=== PATIENT | male | born 1980 | race American Indian/Alaskan Native ===

== ENCOUNTER 2017-02-02 05:05 | Emergency (ER) | payer MEDICARE ==
[2017-02-02 05:20] VITALS: BP 113/72
== END 2017-02-02 05:30 | disposition left against medical advice (07) ==
LOC: ED 05:05
DX: M79.1 Myalgia (principal); Z53.21 Procedure and treatment not carried out due to patient leaving prior to being seen by health care provider

== ENCOUNTER 2017-02-04 02:15 | Emergency (ER) | payer MEDICARE ==
[2017-02-04 02:19] VITALS: BP 134/94
== END 2017-02-04 04:31 | disposition left against medical advice (07) ==
LOC: ED 02:15
DX: J11.1 Influenza due to unidentified influenza virus with other respiratory manifestations (principal); Z53.21 Procedure and treatment not carried out due to patient leaving prior to being seen by health care provider

== ENCOUNTER 2017-02-12 08:37 | Emergency (ER) | payer MEDICARE ==
[2017-02-12 09:16] LABS: Basophils % (Auto) 0.8 % (0.0-1.8); Eosinophils % (Auto) 3.4 % (0.0-4.3); Hematocrit 47.8 % (35.5-45.6); Hemoglobin 15.4 gm/dl (11.8-15.2); Mean Corpuscular HGB Conc 32 % (32-34); Mean Corpuscular Hemoglobin 27 pg (28-32); Mean Corpuscular Volume 83 fl (84-94); Platelet Count 259 K/mm3 (140-440); Red Blood Count 5.77 M/mm3 (3.65-5.03); Red Cell Distribution Width 14.4 % (13.2-15.2); White Blood Count 6.5 K/mm3 (4.5-11.0)
[2017-02-12 09:32] LABS: Anion Gap 18 mmol/L; BUN/Creatinine Ratio 11.66; Blood Urea Nitrogen 7 mg/dL (9-20); Calcium 8.9 mg/dL (8.4-10.2); Carbon Dioxide 26 mmol/L (22-30); Chloride 101.5 mmol/L (98-107); Glucose 88 mg/dL (75-100); Potassium 4.8 mmol/L (3.6-5.0); Sodium 141 mmol/L (137-145)
[2017-02-12] MEDS ORDERED: NACL 0.9% 1000 ML 1,000 ML IV ONE (10:53)
[2017-02-12] MEDS ORDERED: TORADOL IV ONE (11:07)
--- NOTE | 2017-02-12 11:13 | Emergency Department Report ---
HPI - General Chief Complaint: Syncope Time Seen by Provider: 02/12/17 10:41 - HPI HPI: The patient is a 36-year-old male who presents for evaluation of lightheadedness and syncope. The patient reports that at approximately 6 AM, greater than 4 hours prior to my evaluation, he experienced constant and severe lightheadedness, exacerbated with elevation, while walking outdoors, and subsequent he passed out. He reports a constant mild 2/10 generalized aching in quality headache since his fall, and moderate in severity low back pain, 5/ 10 in severity, tightness in quality, exacerbated with bending of the back, and improved with lying flat and rest. The patient denies fever, neck pain or stiffness, chest pain, dyspnea, abdominal pain, paresthesias, vision or hearing changes, saddle anesthesia, numbness or tingling in the arms or legs, leg weakness, urine or bowel incontinence or retention, difficulty ambulating, or other focal neurological deficits. ED Past Medical Hx - Past Medical History Previous Medical History?: Yes Hx Psychiatric Treatment: Yes (anxiety) - Surgical History Past Surgical History?: No - Social History Smoking Status: Current Every Day Smoker Substance Use Type: Alcohol - Medications Home Medications: Home Medications Medication Instructions Recorded Confirmed Last Taken Type No Known Home Medications [No 02/12/17 02/12/17 Unknown History Reported Home Medications] ED Review of Systems ROS: Stated complaint: FALL/BACK /SIDE PAIN Other details as noted in HPI Constitutional: denies: fever; reports lightheadedness and syncope ENT: denies: throat or neck pain Respiratory: denies: cough, shortness of breath Cardiovascular: denies: chest pain Endocrine: denies unexplained weight loss or gain Gastrointestinal: denies: abdominal pain, nausea Genitourinary: denies: dysuria Musculoskeletal: Reports back pain denies: leg swelling Skin: denies: rash Neurological: reports headache Hematological/Lymphatic: denies: easy bleeding or easy bruising Psych: denies sadness or hopelessness Physical Exam - Physical Exam Vital Signs: Vital Signs 02/12/17 08:44 Temperature 97.8 F Pulse Rate 64 Respiratory 18 Rate Blood Pressure 136/95 O2 Sat by Pulse 99 Oximetry Physical Exam: General: well-nourished, well-developed, no acute distress Head: Normocephalic, atraumatic Eyes: normal sclera, PERRL, EOM intact ENT: Mucous membranes are pale and dry Neck: No neck stiffness, no cervical adenopathy Respiratory: Breath sounds equal bilaterally, no wheezing, rales, or rhonchi Cardio: S1 and S2 present, no murmurs, rubs, gallops, capillary refill is delayed Abdomen: Normoactive bowel sounds, soft abdomen, no rigidity, no guarding or rebound tenderness Chest WALL/Back: Inspection of the back unremarkable, Tenderness to palpation present to bilateral lower lumbar paraspinal musculature, normal active range of motion at the hip intact, no spinous step-off or obvious deformity, ipsi- lateral and contralateral straight leg raise tests are negative. On extremity testing, compartments are soft and pliable, no obvious gross motor strength deficit, 5+ motor strength, including extension of the great toe bilaterally, no muscular atrophy, spasticity, fasciculations, or clonus, no obvious gross sensation deficit including web space between 1st and 2nd toes, reflexes 2+ & symmetric on DTR testing at the knee and ankle joints, distal pulses intact. Musc: No pitting edema Skin: No rash Neuro: alert oriented x4, normal cognition, speech normal, no facial drooping, no uvula or tongue deviation on protrusion, no deficit with rotation of neck or shoulder shrug, no obvious gross motor deficit in the upper or lower extremities with flexion or extension at the shoulder, elbow, wrist, hip, knee, or ankle bilaterally, no obvious gross sensation deficit to crude touch or 2 pt discrimination, 2+ symmetric reflexes on DTR testing, no dysmetria, dysdiadochokinesia, no coordination deficit with [id number] or [id number] testing, Babinski downgoing, romberg negative, patient able to to ambulate without abnormal gait Psych: Normal affect ED Course Vital Signs 02/12/17 08:44 Temperature 97.8 F Pulse Rate 64 Respiratory 18 Rate Blood Pressure 136/95 O2 Sat by Pulse 99 Oximetry ED Medical Decision Making - Lab Data Result diagrams: 02/12/17 08:59 02/12/17 08:59 - Medical Decision Making The patient was seen and examined by myself. The patient is placed on a front desk monitor and continuous pulse ox. On initial evaluation, the patient was found to be in no distress. Evaluation orders were placed. No findings on exam concerning for cauda equina syndrome, spinal stenosis, or epidural abscess . As the patient has no midline tenderness on exam, no neuro deficits, and no findings concerning for emergent etiology of their back pain, imaging of the back is not indicated at this time. As there are no neuro deficits or other findings on examination concerning for acute intracranial disease process, and as the patient's headache is only mild, 2/10 in severity, a CAT scan of the head will not be obtained at this time. The patient is given 1 L normal saline fluid bolus for treatment of dehydration , and IV Toradol for pain. Lab results reveal elevated RBC, hemoglobin and hematocrit, consistent with hemoconcentration and exam findings of dehydration, and otherwise labs were grossly unremarkable. The patient was reevaluated and reported that their symptoms were markedly improved. The patient is stable for discharge with outpatient follow-up. The patient is given follow-up and return instructions. The patient expressed understanding and agreed with the plan. The patient is discharged in stable condition. Critical care attestation.: If time is entered above; I have spent that time in minutes in the direct care of this critically ill patient, excluding procedure time. ED Disposition Clinical Impression: Dehydration, Acute post-traumatic headache, not intractable, Acute bilateral low back pain without sciatica, Orthostatic syncope Disposition: DC-01 TO HOME OR SELFCARE Is pt being admited?: No Does the pt Need Aspirin: No Condition: Stable Instructions: Acute Low Back Pain (ED), Dehydration (ED), Acute Headache (ED), Syncope (ED) Referrals: PRIMARY CARE, [Primary Care Provider] - 3-5 Days Time of Disposition: 11:19
[2017-02-12 11:46] VITALS: BP 110/60
== END 2017-02-12 12:58 | disposition home or self-care (01) ==
LOC: ED 08:37
DX: E86.0 Dehydration (principal); R55 Syncope and collapse; G44.319 Acute post-traumatic headache, not intractable; M54.5 Low back pain; F41.9 Anxiety disorder, unspecified; F17.200 Nicotine dependence, unspecified, uncomplicated; Z91.013 Allergy to seafood
CPT/HCPCS: 36415; 80048; 82962; 84484; 85025; 93005; 93010; 96361; 96374; 99285; J1885; J7030